=== PATIENT | female | born 1990 | race African-American/Black ===

== ENCOUNTER 2017-12-05 23:25 | Emergency (ER) | payer SELFPAY ==
[~2017-12-05] VITALS: Ht 160 cm; Wt 90.0 kg
[2017-12-05 23:27] VITALS: BP 131/60; PULSE 77; RESP 16; TEMP 98.5; O2SAT 98
[2017-12-05] MEDS ORDERED: AMOX500T PO (23:43)
[2017-12-05] MEDS ORDERED: AMOXICILLIN (TRIHYDRATE) 500 MG CAP PO ONE (23:45)
[2017-12-05] MEDS ORDERED: NAPROXEN 500 MG TAB PO ONE (23:45)
--- NOTE | 2017-12-05 23:47 | PD ---
HPI Chief Complaint: Oral / Dental Pain or Problem Time Seen by Provider: 23:39 Travel History International Travel<30 days: No Contact w/Intl Traveler<30days: No Traveled to known affect area: No History of Present Illness HPI 27-year-old black female presents to emergency Department with complaints of dental pain for the last few days. She states that she has a tooth in her left lower mandible which has been causing her pain. She states when the wind blows it causes her left ear to hurt. The lungs are mild to moderate. No alleviating factors. No exacerbating factors. PFSH Past Medical History Medical History: Denies Significant Hx Diminished Hearing: No Immunizations Current: Yes ?: Unknown LMP: 10/22/2017 Past Surgical History Surgical History: No Previous Surgery Social History Alcohol Use: Yes (occasionally) Tobacco Use: No Substance Use: No Allergies-Medications (Allergen,Severity, Reaction): Coded Allergies: No Known Allergies (Verified Adverse Reaction, Unknown, 12/05/17) Reported Meds & Prescriptions Reported Meds & Active Scripts Active Amoxicillin 500 Mg Tab 500 Mg PO TID 10 Days Review of Systems Except as stated in HPI: all other systems reviewed are Neg Physical Exam Narrative GENERAL: Well-developed, well-nourished in no acute distress. Nontoxic appearing. Both the patient and the patient's visitor have a very strong odor of marijuana. Skin: Patient has multiple keloids. HEAD: Normocephalic, atraumatic. EYES: Pupils equal round and reactive. Extraocular motions intact. No scleral icterus. No injection or drainage. ENT: TMs clear without erythema. The external auditory canals clear. Nose: clear . Posterior pharynx is pink and moist. No tonsillar edema or exudate. Uvula midline. Airway patent. Patient has a large dental carry in tooth #17. There is no gingival erythema or facial swelling. NECK: Trachea midline.Supple, nontender, moves head freely. No central bony tenderness or spasm. CARDIOVASCULAR: Regular rate and rhythm without murmurs, gallops, or rubs. RESPIRATORY: Clear to auscultation. Breath sounds equal bilaterally. No wheezes , rales, or rhonchi. GASTROINTESTINAL: Abdomen soft, non-tender, nondistended. No hepato-splenomegaly , or palpable masses. No guarding. EXTREMITIES: No clubbing, cyanosis, or edema. No joint tenderness, effusion, or edema noted. BACK: Nontender without deformity or crepitance. No flank tenderness. Data Data Last Documented VS Vital Signs Date Time Temp Pulse Resp B/P (MAP) Pulse Ox O2 Delivery O2 Flow Rate FiO2 12/05/17 23:27 98.5 77 16 131/60 (83) 98 Room Air Orders Orders Ed Discharge Order (12/05/17 23:42) Amoxicillin (Trimox) (12/05/17 23:45) Naproxen (Naprosyn) (12/05/17 23:45) MDM Medical Decision Making Medical Screen Exam Complete: Yes Emergency Medical Condition: Yes Medical Record Reviewed: Yes Differential Diagnosis MDM: Moderate Differential diagnoses: Dental abscess, dental caries, osteitis, cellulitis Narrative Course Patient's given amoxicillin 500 mg and Naprosyn 500 mg by mouth. This is dental caries, dentalgia Diagnosis Primary Impression: dental caries Additional Impression: dentalgia Patient Instructions: General Instructions Additional Instructions: Rest. [place] gargles. [place] oil on cotton balls. 3 Advil every 6 hours. Amoxicillin. follow-up with a dentist as soon as possible. And return to the ER if any problems. Med/Other Pt SpecificInfo: Prescription(s) given Scripts Amoxicillin (Amoxicillin) 500 Mg Tab 500 MG PO TID for Infection for 10 Days, TAB 0 Refills Prov: Michael Bain MD 12/05/17 Disposition: 01 DISCHARGE HOME Condition: Stable Waldemar Ceballos Dec 05, 2017 23:47
== END 2017-12-06 00:12 | disposition home or self-care (01) ==
LOC: NEPD 23:25
DX: K02.9 Dental caries, unspecified (principal)
CPT/HCPCS: 99283